=== PATIENT | male | born 1980 | race Caucasian/White ===

== ENCOUNTER 2021-01-06 00:09 | Emergency (ER) | payer SELFPAY ==
[2021-01-06 00:19] VITALS: BP 133/77; PULSE 89; RESP 20; TEMP 36.7; O2SAT 97
--- NOTE | 2021-01-06 00:48 | ED_ITS ---
HPI - Eye Problem General Chief complaint: Eye Problems Stated complaint: thinks has metal in right eye, flashlight hit him Time Seen by Provider: 01/06/21 00:21 Source: patient Mode of arrival: Ambulatory Limitations: no limitations History of Present Illness HPI Narrative: 40-year-old male smoker with history of hypertension presents with an accidental eye injury just prior to arrival. He does not wear contact lenses and tetanus is up-to-date. He was using a plastic flashlight and accidentally hit himself in the eye was also in the process of mental working and has concerned about the possibility of foreign body. He does have some blurring of vision from his right eye. He is otherwise well and free of complaint MD chief complaint: eye pain, eye injury and vision change Onset (ago): minute(s) Onset description: sudden Duration: constant Location: right eye Eye Symptoms: pain and decreased vision Place: home Mechanism: direct trauma Severity: mild If Pain, Quality: aching Associated symptoms: none Treatments Prior to Arrival: none Related Data Patient tetanus UTD: Yes Home Medications Medication Instructions Recorded Confirmed metoprolol succinate [Toprol XL] 25 mg PO QDAY #0 08/28/17 warfarin PO 08/10/19 08/10/19 Previous Rx's Medication Instructions Recorded azithromycin [Zithromax] 250 mg PO SEE INSTRUCTIONS #6 tab 08/28/17 amoxicillin 875 mg-potassium 1 tab PO BID #20 tab 08/10/19 clavulanate 125 mg tablet Allergies Allergy/AdvReac Type Severity Reaction Status Date / Time cefaclor [CEFACLOR] Allergy Mild Unverified 01/06/21 00:39 vancomycin [VANCOMYCIN] Allergy Mild Unverified 01/06/21 00:39 Review of Systems Constitutional Constitutional: Denies chills, Denies fatigue, Denies fever(s), Denies frequent falls, Denies lethargy and Denies weakness Eyes Eyes: Reports blurry vision, Denies change in vision, Denies eye discharge, Denies irritation, Denies loss of vision and Reports eye pain ENT Ears, Nose, Mouth, and Throat: Denies change in voice, Denies dizziness, Denies neck pain, Denies sore throat and Denies throat swelling Cardiovascular Cardiovascular: Denies chest pain, Denies irregular heart rhythm, Denies lightheadedness, Denies palpitations, Denies dyspnea, Denies dyspnea on exertion and Denies orthopnea Respiratory Respiratory: Denies cough, Denies dyspnea, Denies dyspnea on exertion and Denies wheezing Gastrointestinal Gastrointestinal: Denies abdominal pain, Denies change in bowel habits, Denies diarrhea, Denies nausea and Denies vomiting Musculoskeletal Musculoskeletal: Denies neck pain and Denies numbness Integumentary/Breasts Skin/Breast: Denies pruritus, Denies erythema, Denies rash and Denies wounds Neurologic Neurologic: Denies behavioral changes, Denies confusion, Denies dizziness, Denies frequent falls, Denies loss of vision, Denies numbness and Denies weakness Psychiatric Psychiatric: Denies anxiety, Denies behavioral changes, Denies confusion, Denies depression, Denies homicidal ideation and Denies suicidal ideation Endocrine Endocrine: Denies fatigue, Denies flushing and Denies palpitations Hematologic/Lymphatic Hematologic/Lymphatic: Denies easy bruising Allergic/Immunologic Allergic/Immunologic: Denies urticaria, Denies throat swelling and Denies wheezing Patient History Family History Father Dementia Social History Smoking Status: Current every day smoker Smoking Status: Current every day smoker Exam Narrative Exam Narrative: GEN: AOx3 and in mild distress EYES: Pupils are equal, round, and reactive to light and accommodation. Extraoccular muscles are intact bilaterally. There is no subconjunctival hemorrhage or exudate. Pain completely resolved with use of proparacaine. No foreign body noted, upper lid eversion. No hyphema noted. Large central corneal abrasion noted when viewed under UV lamp. CHEST: Lungs are clear to auscultation bilaterally and free of wheezes, rales, or rhonchi. Heart rate is regular rhythm, there are no murmurs, clicks, rubs, or gallops. There is no chest wall tenderness. ABD: Abdomen is soft and nontender. There is no guarding or rebound. Bowel soun ds are normal in all 4 quadrants. There is no mass or organomegaly. EXT: Full painless ROM of all extremities with no loss of sensation or strength. SKIN: Warm, pink, and dry. No erythema or rash Initial Vital Signs Initial Vital Signs: Vital Signs Temperature 98.0 F 01/06/21 00:19 Pulse Rate 89 01/06/21 00:19 Respiratory Rate 20 01/06/21 00:19 Blood Pressure 133/77 01/06/21 00:19 Pulse Oximetry 97 01/06/21 00:19 Course Orders Ordered: Discontinued Medications Fluorescein Sodium (Fluorescein 1 Mg Strip) 1 mg EYE-RIGHT NOW ONE Stop: 01/06/21 00:25 Last Admin: 01/06/21 01:16 Dose: 1 mg Documented by: RINA Proparacaine HCl (Proparacaine 0.5% Ophth Sana) 1 drops EYE-RIGHT NOW ONE Stop: 01/06/21 00:14 Last Admin: 01/06/21 01:16 Dose: 0.5 % Documented by: RINA Sulfacetamide (Sulfacetamide 10% Ophth Prepack) 1 bottle MISC SEEINSTR ONE Stop: 01/06/21 01:10 Last Admin: 01/06/21 01:16 Dose: 1 bottle Documented by: RINA Vital Signs Vital signs: Vital Signs - 8 hr 01/06/21 00:19 01/06/21 01:20 Temperature 98.0 F Pulse Rate 89 70 Respiratory Rate 20 16 Blood Pressure 133/77 105/67 Pulse Oximetry 97 98 Discharge Plan Departure Patient Disposition: Home Clinical Impression: Injury of conjunctiva and corneal abrasion of right eye without foreign body Qualifiers: Encounter type: initial encounter Qualified Code(s): S05.01XA - Injury of conjunctiva and corneal abrasion without foreign body, right eye, initial encounter Instructions: DI for Corneal Abrasion Activity Restrictions/Additional Instructions: *You have been diagnosed with [right eye pain due to corneal abrasion] *What to do: *Take medications as directed: Sulfacetamide 1-2 drops in the right eye every 2 hours while awake until better. I gave you a diluted numbing medication at 0.05% proparacaine and you may use 1-2 drops every 30 minutes for pain *Follow up with your primary care provider in 2-3 days, call for an appointment. Let them know you were seen in the Emergency Department and that we ask that you be seen in follow up *Return to ER if you should have any new, worsening or concerning symptoms Prescriptions: No Action warfarin PO RF: 0 amoxicillin-pot clavulanate 875-125 mg tablet 1 tab PO BID Qty: 20 RF: 0 metoprolol succinate [Toprol XL] 25 MG tablet extended release 24 hr 25 mg PO QDAY Qty: 0 RF: 0 azithromycin [Zithromax] 250 MG tablet 250 mg PO SEE INSTRUCTIONS Qty: 6 RF: 0 Referrals: Aguilar To MD [Physician] -
[2021-01-06] MEDS: FLUORESCEIN 1 MG STRIP EYE-RIGHT (01:16)
[2021-01-06] MEDS: PROPARACAINE 0.5% OPHTH SOL 1 DROPS EYE-RIGHT (01:16)
[2021-01-06] MEDS: SULFACETAMIDE 10% OPHTH PREPACK 1 BOTTLE MISC (01:16)
[2021-01-06 01:20] VITALS: BP 105/67; PULSE 70; RESP 16; O2SAT 98
== END 2021-01-06 01:21 | disposition home or self-care (01) ==
PROVIDERS: Emergency Provider Emergency Medicine
DX: S05.01XA Injury of conjunctiva and corneal abrasion without foreign body, right eye, initial encounter (principal)
CPT/HCPCS: 99282